=== PATIENT | female | born 1995 | race Caucasian/White ===

== ENCOUNTER 2018-05-08 21:31 | Emergency (ER) | payer OTHER ==
[~2018-05-08] VITALS: Ht 152.4 cm; Wt 113.6 kg
[2018-05-08] MEDS ORDERED: IPRATROPIUM BROMIDE 0.5 MG/2.5 ML NEB SOLUTION NEB ONE (23:00)
[2018-05-08] MEDS ORDERED: ALBUTEROL SULFATE 2.5 MG/0.5 ML NEB SOLUTION NEB ONE (23:00)
[2018-05-08] MEDS ORDERED: PredniSONE 20 MG TABLET PO ONE (23:00)
[2018-05-09 00:01] VITALS: BP 132/83
== END 2018-05-09 00:17 | disposition home or self-care (01) ==
LOC: EMS 21:33
DX: J20.9 Acute bronchitis, unspecified (principal)
CPT/HCPCS: 94640; 99283; J7512

== ENCOUNTER 2020-01-24 19:55 | Emergency (ER) | payer OTHER ==
[~2020-01-24] VITALS: Ht 152.4 cm; Wt 125.0 kg
[2020-01-24 20:05] VITALS: BP 151/66
== END 2020-01-24 20:40 | disposition home or self-care (01) ==
LOC: EMS 19:55
DX: Z11.59 Encounter for screening for other viral diseases (principal); Z20.828 Contact with and (suspected) exposure to other viral communicable diseases
CPT/HCPCS: 99283; U0003

== ENCOUNTER 2020-12-16 22:11 | Emergency (ER) | payer OTHER ==
[~2020-12-16] VITALS: Ht 172.7 cm; Wt 122.7 kg
[2020-12-17 03:13] VITALS: BP 123/74
[2020-12-17 03:20] LABS: COVID AG,FIA SOURCE NASAL SWAB
== END 2020-12-17 03:34 | disposition home or self-care (01) ==
LOC: EMS 22:40
DX: Z20.822 Contact with and (suspected) exposure to COVID-19 (principal)
CPT/HCPCS: 87426; 99283; U0003